=== PATIENT | male | born 1955 | race Caucasian/White ===

== ENCOUNTER 2017-10-05 12:11 | Inpatient (IN) | payer MEDICARE, MEDICAID ==
[~2017-10-05] VITALS: Ht 180.3 cm; Wt 58.6 kg
[2017-10-05 14:27] LABS: BASOPHILS % (AUTO) 0.2 % (0-1); EOSINOPHILS # (AUTO) 0.2 X10'3 (0-0.9); EOSINOPHILS % (AUTO) 1.7 % (0-6); HEMATOCRIT 40.9 % (42.0-52.0); HEMOGLOBIN 13.9 g/dl (14.0-17.9); LYMPHOCYTES # (AUTO) 1.1 X10'3 (1.1-4.8); LYMPHOCYTES % (AUTO) 8.2 % (21-51); MEAN CORPUSCULAR HEMOGLOBIN 29.7 PG (27.0-31.0); MEAN CORPUSCULAR HGB CONC 34.1 % (33.0-36.5); MEAN CORPUSCULAR VOLUME 87.3 FL (78-98); MEAN PLATELET VOLUME 7.7 FL (7.4-10.4); MONOCYTES # (AUTO) 1.1 X10'3 (0-0.9); MONOCYTES % (AUTO) 8.3 % (2-12); NEUTROPHILS # (AUTO) 11.1 X10'3 (1.8-7.7); NEUTROPHILS % (AUTO) 81.6 % (42-75); PLATELET COUNT 261 X10'3 (140-440); RED BLOOD COUNT 4.68 X10'6 (4.70-6.10); RED CELL DISTRIBUTION WIDTH 12.8 % (11.5-14.5); WHITE BLOOD COUNT 13.6 X10'3 (4.5-11.0)
[2017-10-05] MEDS ORDERED: ipratropium/albuterol 3ml nebule NEB ONE (14:35)
[2017-10-05] MEDS ORDERED: albuterol 2.5 MG/3 ML nebule NEB ONE (14:35)
[2017-10-05 14:37] LABS: INR 1.1 INR; PARTIAL THROMBOPLASTIN TIME 29 SECONDS (22-32); PROTHROMBIN TIME 10.9 SECONDS (9.0-12.0)
[2017-10-05 15:13] LABS: ALANINE AMINOTRANSFERASE 19 U/L (12-78); ALBUMIN 3.6 G/DL (3.4-5.0); ALKALINE PHOSPHATASE 100 IU/L (46-116); ANION GAP 6 (8-16); ASPARTATE AMINO TRANSFERASE 18 U/L (10-37); BILIRUBIN,TOTAL 0.5 MG/DL (0.1-1.0); BLOOD UREA NITROGEN 20 MG/DL (7-18); CALCIUM 8.8 MG/DL (8.5-10.1); CHLORIDE 99 MMOL/L (99-107); CREATININE 1.05 MG/DL (0.60-1.10); GLUCOSE 97 MG/DL (70-104); MAGNESIUM 1.8 MG/DL (1.5-2.4); POTASSIUM 3.9 MMOL/L (3.5-5.1); SODIUM 139 MMOL/L (135-145); TOTAL CARBON DIOXIDE 33.7 MMOL/L (24-32); TOTAL PROTEIN 7.3 G/DL (6.4-8.2); eGFR 72 ML/MIN
[2017-10-05 15:24] LABS: CLARITY,URINE CLEAR (Clear); COLOR,URINE YELLOW (Yellow); GLUCOSE, URINE NEGATIVE (Neg); KETONES,URINE NEGATIVE (Neg); LEUKOCYTE ESTERASE ,URINE NEGATIVE (Neg); NITRITES, URINE NEGATIVE (Neg); OCCULT BLOOD,URINE NEGATIVE (Neg); PROTEIN,URINE NEGATIVE (Neg)
[2017-10-05 15:31] LABS: UA COLLECTION TYPE CLN CATCH MIDSTREAM
[2017-10-05] MEDS ORDERED: normal saline 1000ML IV soln IVB ONE (16:00)
[2017-10-05] MEDS ORDERED: methylPREDNISolone sod succ 125mg/2ml vial IV ONE (16:00)
[2017-10-05] MEDS ORDERED: levoFLOXACIN-Levaquin 500mg/D5 100 ML IV ONE (16:00)
[2017-10-05] MEDS ORDERED: acetaminophen 325mg tablet PO PRN (16:35)
[2017-10-05] MEDS ORDERED: mag hydrox/Alum hydrox/simeth 30ml oral suspension PO PRN (16:35)
[2017-10-05] MEDS ORDERED: ondansetron/PF 4mg/2ml inj IV PRN (16:35)
[2017-10-05] MEDS ORDERED: magnesium hydroxide 30ml (MOM) UD suspension PO PRN (16:35)
[2017-10-05] MEDS: dextrose 5%-1/2 normal saline 1,000 ML IV SCH (16:54)
[2017-10-05 19:00] VITALS: BP 112/67
[2017-10-05] MEDS: HYDROcodone/acetaminophen 5mg/325mg tablet PO PRN (20:59)
[2017-10-05] MEDS: methylPREDNISolone sod succ 125mg/2ml vial IV SCH (20:59)
[2017-10-05 23:00] VITALS: BP 115/68
[2017-10-06] MEDS: dextrose 5%-1/2 normal saline 1,000 ML IV SCH ×2 (02:35→05:02)
[2017-10-06 02:38] LABS: BASOPHILS # (AUTO) 0.1 X10'3 (0-0.2); BASOPHILS % (AUTO) 0.5 % (0-1); EOSINOPHILS % (AUTO) 0.1 % (0-6); HEMATOCRIT 39.2 % (42.0-52.0); HEMOGLOBIN 13.1 g/dl (14.0-17.9); LYMPHOCYTES # (AUTO) 0.5 X10'3 (1.1-4.8); LYMPHOCYTES % (AUTO) 3.5 % (21-51); MEAN CORPUSCULAR HEMOGLOBIN 29.2 PG (27.0-31.0); MEAN CORPUSCULAR HGB CONC 33.3 % (33.0-36.5); MEAN CORPUSCULAR VOLUME 87.5 FL (78-98); MEAN PLATELET VOLUME 8.5 FL (7.4-10.4); MONOCYTES # (AUTO) 0.1 X10'3 (0-0.9); MONOCYTES % (AUTO) 0.6 % (2-12); NEUTROPHILS # (AUTO) 13.5 X10'3 (1.8-7.7); NEUTROPHILS % (AUTO) 95.3 % (42-75); PLATELET COUNT 246 X10'3 (140-440); RED BLOOD COUNT 4.47 X10'6 (4.70-6.10); WHITE BLOOD COUNT 14.2 X10'3 (4.5-11.0)
[2017-10-06] MEDS: methylPREDNISolone sod succ 125mg/2ml vial IV SCH ×4 (02:46→19:33)
[2017-10-06] MEDS ORDERED: aspirin 325mg tablet PO ONE (02:50)
[2017-10-06 02:59] LABS: ANION GAP 3 (8-16); BLOOD UREA NITROGEN 23 MG/DL (7-18); BUN/CREATININE RATIO 26.1 (5.4-32.0); CHLORIDE 101 MMOL/L (99-107); CREATININE 0.88 MG/DL (0.60-1.10); GLUCOSE 159 MG/DL (70-104); POTASSIUM 4.2 MMOL/L (3.5-5.1); SODIUM 137 MMOL/L (135-145); TOTAL CARBON DIOXIDE 33.1 MMOL/L (24-32)
[2017-10-06 03:00] VITALS: BP 104/67
[2017-10-06 03:00] LABS: ALANINE AMINOTRANSFERASE 19 U/L (12-78); ALBUMIN 3.1 G/DL (3.4-5.0); ALBUMIN/GLOBULIN RATIO 0.8 (1.1-1.5); ALKALINE PHOSPHATASE 88 IU/L (46-116); ASPARTATE AMINO TRANSFERASE 19 U/L (10-37); BILIRUBIN,TOTAL 0.3 MG/DL (0.1-1.0); CALCIUM 8.8 MG/DL (8.5-10.1); TOTAL PROTEIN 6.9 G/DL (6.4-8.2); eGFR 88 ML/MIN
[2017-10-06 06:00] VITALS: BP 102/61
[2017-10-06] MEDS ORDERED: NO HOME MEDS (06:43)
[2017-10-06] MEDS: enoxaparin 40mg/0.4ml syringe SQ SCH (07:17)
[2017-10-06] MEDS: levoFLOXACIN-Levaquin 750MG/D5 150 ML IV SCH (07:20)
[2017-10-06] MEDS: HYDROcodone/acetaminophen 5mg/325mg tablet PO PRN ×3 (07:24→22:45)
[2017-10-06] MEDS: ipratropium/albuterol 3ml nebule IH PRN (09:21)
[2017-10-06] MEDS: nicotine 14mg patch - 24hr TD SCH (10:21)
[2017-10-06 11:00] VITALS: BP 102/63
[2017-10-06 15:00] VITALS: BP 107/63
[2017-10-06] MEDS: lactobacillus rhamnosus 10,000 MMU CELLS/CAPSULE PO SCH (17:26)
[2017-10-06 19:00] VITALS: BP 103/67
[2017-10-06 23:00] VITALS: BP 110/69
[2017-10-07] MEDS: methylPREDNISolone sod succ 125mg/2ml vial IV SCH ×4 (02:35→19:54)
[2017-10-07 03:00] VITALS: BP 107/68
[2017-10-07] MEDS: HYDROcodone/acetaminophen 5mg/325mg tablet PO PRN (05:56)
[2017-10-07 06:00] VITALS: BP 106/65
[2017-10-07] MEDS: lactobacillus rhamnosus 10,000 MMU CELLS/CAPSULE PO SCH ×2 (07:17→17:43)
[2017-10-07] MEDS: enoxaparin 40mg/0.4ml syringe SQ SCH (07:18)
[2017-10-07] MEDS: levoFLOXACIN-Levaquin 750MG/D5 150 ML IV SCH (07:22)
[2017-10-07] MEDS: nicotine 14mg patch - 24hr TD SCH (07:25)
[2017-10-07 08:50] LABS: BASOPHILS % (AUTO) 0 % (0-1); EOSINOPHILS % (AUTO) 0 % (0-6); HEMATOCRIT 36.5 % (42.0-52.0); HEMOGLOBIN 12.4 g/dl (14.0-17.9); LYMPHOCYTES # (AUTO) 0.5 X10'3 (1.1-4.8); LYMPHOCYTES % (AUTO) 2.3 % (21-51); MEAN CORPUSCULAR HEMOGLOBIN 29.7 PG (27.0-31.0); MEAN CORPUSCULAR VOLUME 87.2 FL (78-98); MONOCYTES # (AUTO) 0.2 X10'3 (0-0.9); MONOCYTES % (AUTO) 0.9 % (2-12); NEUTROPHILS # (AUTO) 20.3 X10'3 (1.8-7.7); NEUTROPHILS % (AUTO) 96.8 % (42-75); PLATELET COUNT 235 X10'3 (140-440); RED BLOOD COUNT 4.18 X10'6 (4.70-6.10)
[2017-10-07] MEDS: azithromycin/NS 500mg/250ml 250 ML IV SCH (09:19)
[2017-10-07 11:00] VITALS: BP 102/65
[2017-10-07 15:00] VITALS: BP 101/58
[2017-10-07 19:00] VITALS: BP 104/66
[2017-10-07 23:00] VITALS: BP 106/70
[2017-10-08] MEDS: methylPREDNISolone sod succ 125mg/2ml vial IV SCH ×4 (02:42→20:14)
[2017-10-08 03:00] VITALS: BP 104/62
[2017-10-08 06:00] VITALS: BP 101/55
[2017-10-08] MEDS: lactobacillus rhamnosus 10,000 MMU CELLS/CAPSULE PO SCH ×2 (07:14→17:44)
[2017-10-08] MEDS: enoxaparin 40mg/0.4ml syringe SQ SCH (07:15)
[2017-10-08] MEDS: nicotine 14mg patch - 24hr TD SCH (07:15)
[2017-10-08] MEDS: azithromycin/NS 500mg/250ml 250 ML IV SCH (07:16)
[2017-10-08] MEDS: HYDROcodone/acetaminophen 5mg/325mg tablet PO PRN (07:28)
[2017-10-08 11:56] VITALS: BP 114/67
[2017-10-08] MEDS: LORazepam 0.5 MG tablet PO PRN (13:43)
[2017-10-08] MEDS: ipratropium/albuterol 3ml nebule IH PRN ×2 (14:35→19:50)
[2017-10-08 15:00] VITALS: BP 115/56
[2017-10-08 20:00] VITALS: BP 117/59
[2017-10-09] VITALS (7 sets, daily range): BP systolic 105–119; BP diastolic 64–83
[2017-10-09] MEDS: methylPREDNISolone sod succ 125mg/2ml vial IV SCH ×3 (02:18→15:06)
[2017-10-09] MEDS: HYDROcodone/acetaminophen 5mg/325mg tablet PO PRN ×2 (02:52→07:35)
[2017-10-09] MEDS: enoxaparin 40mg/0.4ml syringe SQ SCH (07:19)
[2017-10-09] MEDS: azithromycin 250mg tablet PO SCH (07:19)
[2017-10-09] MEDS: lactobacillus rhamnosus 10,000 MMU CELLS/CAPSULE PO SCH ×2 (07:19→17:30)
[2017-10-09] MEDS: nicotine 14mg patch - 24hr TD SCH (07:20)
[2017-10-09] MEDS: LORazepam 0.5 MG tablet PO PRN (10:03)
[2017-10-10 02:00] VITALS: BP 100/58
[2017-10-10] MEDS: HYDROcodone/acetaminophen 5mg/325mg tablet PO PRN ×5 (02:56→21:23)
[2017-10-10 06:00] VITALS: BP 112/58
[2017-10-10] MEDS: azithromycin 250mg tablet PO SCH (08:16)
[2017-10-10] MEDS: lactobacillus rhamnosus 10,000 MMU CELLS/CAPSULE PO SCH ×2 (08:16→17:01)
[2017-10-10] MEDS: prednisone 10mg tablet PO SCH (08:17)
[2017-10-10] MEDS: nicotine 14mg patch - 24hr TD SCH (08:17)
[2017-10-10] MEDS: enoxaparin 40mg/0.4ml syringe SQ SCH (08:18)
[2017-10-10 11:00] VITALS: BP 112/59
[2017-10-10] MEDS ORDERED: pantoprazole 40mg Tablet.DR PO ONE (11:45)
[2017-10-10] MEDS: LORazepam 0.5 MG tablet PO PRN ×2 (12:24→18:37)
[2017-10-10 13:05] LABS: BASOPHILS % (AUTO) 0.1 % (0-1); EOSINOPHILS % (AUTO) 0 % (0-6); HEMATOCRIT 37.7 % (42.0-52.0); HEMOGLOBIN 12.8 g/dl (14.0-17.9); LYMPHOCYTES # (AUTO) 0.9 X10'3 (1.1-4.8); LYMPHOCYTES % (AUTO) 5.8 % (21-51); MEAN CORPUSCULAR HEMOGLOBIN 29.8 PG (27.0-31.0); MEAN CORPUSCULAR HGB CONC 33.9 % (33.0-36.5); MONOCYTES # (AUTO) 0.9 X10'3 (0-0.9); MONOCYTES % (AUTO) 5.2 % (2-12); NEUTROPHILS # (AUTO) 14.7 X10'3 (1.8-7.7); NEUTROPHILS % (AUTO) 88.9 % (42-75); PLATELET COUNT 262 X10'3 (140-440); RED BLOOD COUNT 4.29 X10'6 (4.70-6.10); RED CELL DISTRIBUTION WIDTH 12.4 % (11.5-14.5); WHITE BLOOD COUNT 16.5 X10'3 (4.5-11.0)
[2017-10-10 13:16] LABS: ALBUMIN 2.5 G/DL (3.4-5.0); BLOOD UREA NITROGEN 20 MG/DL (7-18); BUN/CREATININE RATIO 32.3 (5.4-32.0); CALCIUM 8.3 MG/DL (8.5-10.1); CHLORIDE 101 MMOL/L (99-107); CREATININE 0.62 MG/DL (0.60-1.10); GLUCOSE 102 MG/DL (70-104); POTASSIUM 3.8 MMOL/L (3.5-5.1); SODIUM 143 MMOL/L (135-145); eGFR > 90 ML/MIN
[2017-10-10 13:17] LABS: ANION GAP -3 (8-16)
[2017-10-10 13:19] LABS: TOTAL CARBON DIOXIDE 45.1 MMOL/L (24-32)
[2017-10-10 15:00] VITALS: BP 115/70
[2017-10-10 19:00] VITALS: BP 112/78
[2017-10-10 23:00] VITALS: BP 131/79
[2017-10-11 03:00] VITALS: BP 143/71
[2017-10-11] MEDS: HYDROcodone/acetaminophen 5mg/325mg tablet PO PRN (04:02)
[2017-10-11 05:57] LABS: BASOPHILS # (AUTO) 0.1 X10'3 (0-0.2); BASOPHILS % (AUTO) 1.1 % (0-1); EOSINOPHILS # (AUTO) 0.1 X10'3 (0-0.9); HEMOGLOBIN 13.4 g/dl (14.0-17.9); LYMPHOCYTES % (AUTO) 25.3 % (21-51); MEAN CORPUSCULAR HEMOGLOBIN 29.8 PG (27.0-31.0); MEAN CORPUSCULAR HGB CONC 33.6 % (33.0-36.5); MEAN CORPUSCULAR VOLUME 88.9 FL (78-98); MEAN PLATELET VOLUME 7.9 FL (7.4-10.4); MONOCYTES % (AUTO) 8.7 % (2-12); NEUTROPHILS # (AUTO) 7.6 X10'3 (1.8-7.7); NEUTROPHILS % (AUTO) 63.9 % (42-75); PLATELET COUNT 310 X10'3 (140-440); RED CELL DISTRIBUTION WIDTH 12.7 % (11.5-14.5); WHITE BLOOD COUNT 11.9 X10'3 (4.5-11.0)
[2017-10-11 06:00] VITALS: BP 121/78
[2017-10-11 06:31] LABS: ANION GAP 5 (8-16); BLOOD UREA NITROGEN 19 MG/DL (7-18); CALCIUM 8.2 MG/DL (8.5-10.1); CHLORIDE 98 MMOL/L (99-107); CREATININE 0.76 MG/DL (0.60-1.10); GLUCOSE 93 MG/DL (70-104); POTASSIUM 3.4 MMOL/L (3.5-5.1); SODIUM 143 MMOL/L (135-145); eGFR > 90 ML/MIN
[2017-10-11 06:32] LABS: ALANINE AMINOTRANSFERASE 24 U/L (12-78); ALBUMIN 2.6 G/DL (3.4-5.0); ALBUMIN/GLOBULIN RATIO 0.8 (1.1-1.5); ALKALINE PHOSPHATASE 74 IU/L (46-116); ASPARTATE AMINO TRANSFERASE 19 U/L (10-37); BILIRUBIN,TOTAL 0.2 MG/DL (0.1-1.0); MAGNESIUM 1.9 MG/DL (1.5-2.4); TOTAL PROTEIN 5.9 G/DL (6.4-8.2)
[2017-10-11 06:39] LABS: TOTAL CARBON DIOXIDE 40.5 MMOL/L (24-32)
[2017-10-11] MEDS ORDERED: pantoprazole 40mg Tablet.DR PO SCH (07:30)
[2017-10-11] MEDS: azithromycin 250mg tablet PO SCH (08:20)
[2017-10-11] MEDS: lactobacillus rhamnosus 10,000 MMU CELLS/CAPSULE PO SCH (08:20)
[2017-10-11] MEDS: enoxaparin 40mg/0.4ml syringe SQ SCH (08:21)
[2017-10-11] MEDS: nicotine 14mg patch - 24hr TD SCH (08:21)
[2017-10-11] MEDS ORDERED: potassium chloride 10mEq CAPSULE.SA PO ONE (09:15)
[2017-10-11] MEDS ORDERED: potassium Cl 20 mEq SR tablet PO ONE (09:20)
[2017-10-11] MEDS: prednisone 10mg tablet PO SCH (09:25)
[2017-10-11] MEDS: ipratropium/albuterol 3ml nebule IH PRN (09:43)
[2017-10-11] MEDS ORDERED: PANT40TA4 PO (10:32)
[2017-10-11] MEDS ORDERED: PRED10TA PO (10:32)
[2017-10-11] MEDS ORDERED: NICO-631 TD (10:32)
[2017-10-11] MEDS ORDERED: POTA20TA10 PO (10:32)
[2017-10-11 11:00] VITALS: BP 114/71
[2017-10-12] MEDS ORDERED: potassium Cl 20 mEq SR tablet PO SCH (08:00)
== END 2017-10-11 12:30 | disposition home or self-care (01) | DRG 189 ==
LOC: ER 12:12 → ED HOLD 16:35 → EDBEDREQ 18:17 → PCU 3S 19:09
PROVIDERS: ADMIT Internal Medicine; ATTEND Internal Medicine
DX: J96.01 Acute respiratory failure with hypoxia (principal); J44.0 Chronic obstructive pulmonary disease with (acute) lower respiratory infection; Z99.81 Dependence on supplemental oxygen; J44.1 Chronic obstructive pulmonary disease with (acute) exacerbation; K29.00 Acute gastritis without bleeding; F41.9 Anxiety disorder, unspecified; D72.829 Elevated white blood cell count, unspecified; R91.1 Solitary pulmonary nodule; J20.9 Acute bronchitis, unspecified; T38.0X5A Adverse effect of glucocorticoids and synthetic analogues, initial encounter; F12.90 Cannabis use, unspecified, uncomplicated; F17.210 Nicotine dependence, cigarettes, uncomplicated; I25.2 Old myocardial infarction; Z88.5 Allergy status to narcotic agent; Z88.8 Allergy status to other drugs, medicaments and biological substances; Z82.49 Family history of ischemic heart disease and other diseases of the circulatory system; Y92.89 Other specified places as the place of occurrence of the external cause
CPT/HCPCS: 36415; 71045; 71250; 80048; 80053; 81003; 83605; 83735; 83880; 84145; 84443; 84484; 85025; 85610; 85730; 86713; 87040; 87070; 87502; 87503; 93005; 94640; 94760; 96374; 99291; J0456; J1650; J1956; J2405; J2930; J7030; J7512

== ENCOUNTER 2019-01-05 10:27 | Emergency (ER) | payer MEDICARE, MEDICAID ==
[~2019-01-05] VITALS: Ht 180.3 cm; Wt 61.4 kg
[~2019-01-05 10:27] MED LIST: NICO-631 TD; NO HOME MEDS; PANT40TA4 PO; POTA20TA10 PO; PRED10TA PO
[2019-01-05 11:25] LABS: BASOPHILS % (AUTO) 0.6 % (0-1); EOSINOPHILS # (AUTO) 0.1 X10'3 (0-0.9); EOSINOPHILS % (AUTO) 2.1 % (0-6); HEMOGLOBIN 15.8 g/dl (14.0-17.9); LYMPHOCYTES # (AUTO) 1.8 X10'3 (1.1-4.8); LYMPHOCYTES % (AUTO) 29.7 % (21-51); MEAN CORPUSCULAR HEMOGLOBIN 29.7 PG (27.0-31.0); MEAN CORPUSCULAR HGB CONC 33.6 g/dL (33.0-36.5); MEAN CORPUSCULAR VOLUME 88.3 FL (78-98); MEAN PLATELET VOLUME 7.9 FL (7.4-10.4); MONOCYTES # (AUTO) 0.7 X10'3 (0-0.9); MONOCYTES % (AUTO) 10.8 % (2-12); NEUTROPHILS # (AUTO) 3.5 X10'3 (1.8-7.7); NEUTROPHILS % (AUTO) 56.8 % (42-75); PLATELET COUNT 264 X10'3 (140-440); RED BLOOD COUNT 5.33 X10'6 (4.70-6.10); WHITE BLOOD COUNT 6.1 X10'3 (4.5-11.0)
[2019-01-05] MEDS ORDERED: PRED20TA PO (11:26)
[2019-01-05] MEDS ORDERED: ALBU18HF2 INH (11:26)
[2019-01-05] MEDS ORDERED: AZIT250T2 PO (11:26)
[2019-01-05] MEDS: ipratropium/albuterol 3ml nebule NEB ONE (11:29)
[2019-01-05] MEDS: albuterol 2.5 MG/3 ML nebule NEB ONE (11:29)
[2019-01-05] MEDS: normal saline 1000ML IV soln IVB ONE (11:30)
[2019-01-05] MEDS: methylPREDNISolone sod succ 125mg/2ml vial IV ONE (11:31)
[2019-01-05] MEDS: azithromycin 250mg tablet PO ONE (11:37)
[2019-01-05 11:42] LABS: ALANINE AMINOTRANSFERASE 21 U/L (12-78); ALBUMIN 3.7 G/DL (3.4-5.0); ALBUMIN/GLOBULIN RATIO 0.9 (1.1-1.5); ALKALINE PHOSPHATASE 107 IU/L (46-116); ANION GAP -1 (8-16); ASPARTATE AMINO TRANSFERASE 22 U/L (10-37); BILIRUBIN,TOTAL 0.5 MG/DL (0.1-1.0); BLOOD UREA NITROGEN 15 MG/DL (7-18); BUN/CREATININE RATIO 20.5 (5.4-32.0); CALCIUM 9.7 MG/DL (8.5-10.1); CHLORIDE 101 MMOL/L (99-107); CREATININE 0.73 MG/DL (0.60-1.10); GLUCOSE 83 MG/DL (70-104); POTASSIUM 4.5 MMOL/L (3.5-5.1); SODIUM 136 MMOL/L (135-145); TOTAL CARBON DIOXIDE 36.3 MMOL/L (24-32); TOTAL PROTEIN 7.9 G/DL (6.4-8.2); eGFR > 90 ML/MIN
[2019-01-05 11:55] VITALS: BP 106/50
--- NOTE | 2019-01-05 11:56 | NUR ---
RT TX FINISHED. PT STATES, IM BREATHING BETTER.
== END 2019-01-05 12:15 | disposition home or self-care (01) ==
LOC: ER 10:28
DX: J44.1 Chronic obstructive pulmonary disease with (acute) exacerbation (principal); R06.03 Acute respiratory distress; F17.200 Nicotine dependence, unspecified, uncomplicated; F12.90 Cannabis use, unspecified, uncomplicated; Z88.5 Allergy status to narcotic agent; Z88.8 Allergy status to other drugs, medicaments and biological substances; Z79.2 Long term (current) use of antibiotics; Z79.899 Other long term (current) drug therapy
CPT/HCPCS: 36415; 71045; 80053; 83605; 85025; 87040; 93005; 94640; 94760; 96374; 99284; J2930; J7030

== ENCOUNTER 2019-10-06 19:34 | Emergency (ER) | payer MEDICARE, MEDICAID ==
[~2019-10-06] VITALS: Ht 180.3 cm; Wt 63.0 kg
[~2019-10-06 19:34] MED LIST changes: +ALBU18HF2 INH
[2019-10-06] MEDS ORDERED: methylPREDNISolone sod succ 125mg/2ml vial IV ONE (19:45)
[2019-10-06] MEDS ORDERED: ipratropium/albuterol 3ml nebule NEB ONE (19:45)
[2019-10-06] MEDS ORDERED: normal saline 1000ML IV soln IVB ONE (19:45)
--- NOTE | 2019-10-06 19:53 | NUR ---
1949 ETOMIDATE 20MG 1949 HUGO 80MG 1952 INTUBATED 24CM TO MOUTH ET SIZE 8 BI-LATERAL POSITIVE AUSCILTATION
[2019-10-06] MEDS ORDERED: etomidate 2mg/ml inj. ONE (20:00)
[2019-10-06] MEDS ORDERED: rocuronium 10mg/ml inj IV ONE (20:00)
--- NOTE | 2019-10-06 20:00 | NUR ---
CXR AT BEDSIDE.
[2019-10-06 20:15] LABS: BASOPHILS % (AUTO) 0.6 % (0-1); EOSINOPHILS # (AUTO) 0.1 X10'3 (0-0.9); EOSINOPHILS % (AUTO) 1.2 % (0-6); HEMATOCRIT 41.9 % (42.0-52.0); HEMOGLOBIN 13.9 g/dl (14.0-17.9); LYMPHOCYTES # (AUTO) 1.7 X10'3 (1.1-4.8); LYMPHOCYTES % (AUTO) 27.6 % (21-51); MEAN CORPUSCULAR HEMOGLOBIN 29.2 PG (27.0-31.0); MEAN CORPUSCULAR HGB CONC 33.1 g/dL (33.0-36.5); MEAN CORPUSCULAR VOLUME 88.2 FL (78-98); MEAN PLATELET VOLUME 7.7 FL (7.4-10.4); MONOCYTES # (AUTO) 0.6 X10'3 (0-0.9); MONOCYTES % (AUTO) 8.8 % (2-12); NEUTROPHILS # (AUTO) 3.9 X10'3 (1.8-7.7); NEUTROPHILS % (AUTO) 61.8 % (42-75); PLATELET COUNT 256 X10'3 (140-440); RED BLOOD COUNT 4.75 X10'6 (4.70-6.10); RED CELL DISTRIBUTION WIDTH 13.1 % (11.5-14.5); WHITE BLOOD COUNT 6.3 X10'3 (4.5-11.0)
[2019-10-06] MEDS: propofol 1000mg/100ml bottle 100 ML IV PRN ×4 (20:25→23:33)
[2019-10-06 20:26] LABS: PARTIAL THROMBOPLASTIN TIME 28 SECONDS (22-32)
--- NOTE | 2019-10-06 20:27 | NUR ---
FAMILY AT BEDSIDE
[2019-10-06 20:28] LABS: ALANINE AMINOTRANSFERASE 16 U/L (12-78); ALBUMIN 3.7 G/DL (3.4-5.0); ALKALINE PHOSPHATASE 94 IU/L (46-116); ANION GAP 0 (8-16); ASPARTATE AMINO TRANSFERASE 18 U/L (10-37); BILIRUBIN,TOTAL 0.2 MG/DL (0.1-1.0); BLOOD UREA NITROGEN 22 MG/DL (7-18); BUN/CREATININE RATIO 23.7 (5.4-32.0); CALCIUM 8.7 MG/DL (8.5-10.1); CHLORIDE 106 MMOL/L (99-107); CREATININE 0.93 MG/DL (0.60-1.10); GLUCOSE 97 MG/DL (70-104); SODIUM 142 MMOL/L (135-145); TOTAL CARBON DIOXIDE 35.7 MMOL/L (24-32); TOTAL PROTEIN 7.4 G/DL (6.4-8.2); eGFR 82 ML/MIN
[2019-10-06 20:30] LABS: POTASSIUM 4.2 MMOL/L (3.5-5.1)
[2019-10-06 20:31] LABS: ABG BASE EXCESS 1.7 mmol/L (-2.0-3.0); ABG HCO3 28.8 mmol/L (22.0-26.0); ABG OXYGEN SATURATION 99.2 % (95-98); ABG PCO2 (T) 56.1 mmHg (35.0-45.0); ABG PH (T) 7.329 (7.350-7.450); ABG PO2 (T) 314.9 mmHg (83-108); ALLEN'S TEST POSITIVE; FCOHb 1.5 % (0.5-1.5); FMetHb 0.2 % (0.3-1.12); FO2Hb 97.5 % (94-100); PEEP 5 cm H2O; RESPIRATORY RATE 16 b/min; TIDAL VOLUME 450 mL; TOTAL HEMOGLOBIN 13.4 G/dl (14.0-17.9)
[2019-10-06] MEDS ORDERED: MIDAZolam 5mg/ml 2ml vial IV ONE (21:00)
--- NOTE | 2019-10-06 21:11 | NUR ---
2049: PT MAXED OUT AT 50MCG/KG/MIN OF IV PROPOFOL (DR. ROWELL AWARE, OK TO INITIATE A VERSED MAINTENANCE INFUSION; PENDING PHARMACY DELIVERY) 2101: BOLUS OF 30MG IV PROPOFOL GIVEN 2108: BOLUS OF 5MG VERSED GIVEN
[2019-10-06] MEDS: midazolam 100mg in NS 100ml 100 ML IV PRN ×2 (21:22→23:31)
--- NOTE | 2019-10-06 21:23 | NUR ---
1MG/HR VERSED MAINTENANCE INFUSION STARTED. PT REMAINS RASS +1 RESTLESS.
--- NOTE | 2019-10-06 21:27 | NUR ---
DR. ROWELL CAME TO BEDSIDE AND UPDATED DAUGHTER ON PLAN OF CARE. PT WILL BE TRANSFERRED TO [facility]. PENDING TRANSFER ARRANGEMENTS. PT REMAINS ON RESTLESS ON PROPOFOL AND VERSED MAINTENANCE INFUSIONS. PER DR. ROWELL, "OK" TO TITRATE VERSED DRIP TO 3MG/HR (TITRATE AGAIN TO 5MG/HR) IF PT REMAINS RESTLESS. PT'S BP STABLE AT 122/61, 79 NSR, 98% ON 40 FIO2, AND 21 RESP (18 SET VENT RATE), 96.8 VIEYRA TEMP. WILL CONTINUE TO MONITOR AND ASSESS.
--- NOTE | 2019-10-06 21:46 | NUR ---
Pt's daughters at bedside. Pt seems a little restless as they talk to him, but then calms down. BP 106/74, O2 96%, HR 81, R18 on ventilator.
--- NOTE | 2019-10-06 22:09 | NUR ---
VERSED MAINTENANCE INFUSION TITRATED TO 10MG/HR DUE RASS +1 RESTLESS MOVEMENT.
[2019-10-06] MEDS ORDERED: normal saline 1000ml 1,000 ML IV SCH (22:15)
--- NOTE | 2019-10-06 22:27 | NUR ---
VERSED INFUSION TITRATED TO 15MG/HR.
[2019-10-06] MEDS ORDERED: TETanus/Pertussis (Acell)/Diphther VAC/PF (Tdap-Adult) 0.5ml syringe IMVAC ONE (22:35)
--- NOTE | 2019-10-06 23:25 | NUR ---
[facility] AT BEDSIDE ASSESSING PT, PREPPING FOR AIR TRANSPORT. DAUGHTERS AT BEDSIDE WITH PT.
--- NOTE | 2019-10-06 23:39 | NUR ---
[facility] AT BEDSIDE PREPPING THEIR EQUIPMENT FOR TRANSFER. PT REMAINS CRITICALLY STABLE AT THIS TIME.
[2019-10-07 00:05] LABS: URINE AMPHETAMINE SCREEN POSITIVE (Neg); URINE BARBITUATE SCREEN NEGATIVE (Neg); URINE BENZODIAZEPINES SCREEN POSITIVE (Neg); URINE CANNABINOID SCREEN POSITIVE (Neg); URINE COCAINE SCREEN NEGATIVE (Neg); URINE METHADONE SCREEN NEGATIVE (Neg); URINE OPIATE SCREEN NEGATIVE (Neg); URINE PHENCYCLIDINE SCREEN NEGATIVE (Neg)
[2019-10-07 00:18] VITALS: BP 107/72
[2019-10-07] MEDS ORDERED: propofol 1000mg/100ml bottle 100 ML IV PRN (01:50)
[2019-10-07] MEDS ORDERED: midazolam 100mg in NS 100ml 100 ML IV PRN (01:50)
--- NOTE | 2019-10-07 02:24 | NUR ---
PT RETURNED TO ED FROM [facility] TO MECHANICAL FAILURE OF HELIC[facility]TER, PT SEDATION MEDICATIONS RUNNING LOW AND WILL NEED MORE IN FLIGHT MEDICATIONS PULLED AND GIVEN TO [facility]W TO ADMINISTER DURING TRANSPORT.
== END 2019-10-07 00:20 | disposition short-term general hospital (02) ==
LOC: ER 19:35
DX: T20.20XA Burn of second degree of head, face, and neck, unspecified site, initial encounter (principal); J96.01 Acute respiratory failure with hypoxia; J44.9 Chronic obstructive pulmonary disease, unspecified; F17.210 Nicotine dependence, cigarettes, uncomplicated; F12.90 Cannabis use, unspecified, uncomplicated; Z88.5 Allergy status to narcotic agent; Z88.8 Allergy status to other drugs, medicaments and biological substances; Z79.899 Other long term (current) drug therapy; X08.8XXA Exposure to other specified smoke, fire and flames, initial encounter; Y93.89 Activity, other specified; Y92.89 Other specified places as the place of occurrence of the external cause; Y99.9 Unspecified external cause status
CPT/HCPCS: 31500; 36415; 36600; 71045; 80053; 80305; 82803; 85018; 85025; 85610; 85730; 93005; 99291; 99292; J2250; J2704; J2930; J7030; 94002; 94760

== ENCOUNTER 2025-01-26 11:10 | Outpatient (CLI) | payer MEDICARE, MEDICAID ==
[~2025-01-26 11:10] MED LIST changes: -PANT40TA4 PO; +PANT40TA54 PO; +POTA-197 PO; -POTA20TA10 PO
[2025-01-26 11:53] VITALS: PULSE 71; RESP 18; O2SAT 98
--- NOTE | 2025-01-26 13:24 | RADIOLOGY REPORT ---
Procedure: CT CT CHEST Reason for study/Clinical History: DISORDERS OF LUNG;CHRONIC OBSTRUCTIVE PULMONARY DI Comparison Study: None TECHNIQUE: Multidetector CT of the chest was performed from the lung apices to the upper abdomen with out the use of intravenous contract. Axial, coronal and sagittal multiplanar reformats were performed . Radiation Dose Information: CT Dose: CTDI volume is 7.1 mGy. Dose-length product is 314.1 mGy*cm The dose indicators for CT are the volume Computed Tomography (CT) Dose Index (CTDIvol) and the Dose Length Product (DLP), and are measured in units of mGy and mGy-cm, respectively. These indicators are not patient dose, but values generated from the CT scanner acquisition factors. The report includes radiation exposure data for exposures received during this examination. FINDINGS: Lower neck: Unremarkable. Lungs: 0.9 cm nodule in the left lower lobe. Severe centrilobular emphysema. Patchy opacity in the right lower lobe measures 2.0 cm. Bibasilar subsegmental atelectasis or scarring. Heart/Vascular Structures: Normal heart size. No pericardial effusion. Lymph Nodes: No adenopathy Pleura: No pleural effusion or significant pneumothorax. Musculoskeletal: No acute osseous abnormality. Degenerative changes of the spine. Soft tissues: Normal. Upper abdomen: Limited portions of the upper abdomen are unremarkable. IMPRESSION: Severe centrilobular emphysema. 0.9 cm nodule in the left lower lobe. Patchy opacity in the right lower lobe measures 2.0 cm. This may be infectious, inflammatory or neop lastic. Recommend repeat CT in 3 months after complete resolution. Fleischner Society pulmonary nodule recommendations (2017): Single solid nodule <6 mm Low-risk patients: no routine follow-up required High-risk patients: optional CT at 12 months (particularly with suspicious nodule morphology and/or upper lobe location) Solitary solid nodule 6-8 mm Low-risk patients: CT at 6-12 months, then consider CT at 18-24 months High-risk patients: CT at 6-12 months, then CT at 18-24 months Solitary solid nodule >8 mm (>250 mm3) Low-risk and high-risk patients: consider CT at 3 months, PET/CT, or tissue sampling Multiple solid nodules <6 mm Low-risk patients: no routine follow-up required High-risk patients: optional CT at 12 months Multiple solid nodules >6 mm Low-risk patients: CT at 3-6 months, then consider CT at 18-24 months High-risk patients: CT at 3-6 months, then CT at 18-24 months When multiple nodules are present, the most suspicious nodule should guide further individualized management. Solitary groundglass opacities < 6 mm require no follow-up Multiple groundglass opacities < 6 mm: CT 3-6 months. If stable consider CT at 2 , and 4 years Groundglass opacities >6 mm: follow-up in 6-12 months and then every 2 years for 5 years. Groundglass opacities greater than 6 mm with part solid component follow-up CT in 3-6 months to confirm persistence. If unchanged and solid component remains less than [address] for 5 years Multiple groundglass opacities greater than 6 mm: CT at 3-6 months. Subsequent management based on the most suspicious nodules. These recommendations do not necessarily apply to women, patients with immunosuppression or a prior history of cancer, patients with multiple nodules that are suspicious for metastasis or infection, or patients with mediastinal lymphadenopathy or pleural effusion in whom cancer is strongly suspected.
--- NOTE | 2025-01-29 13:44 | PROCEDURE NOTE - Respiratory ---
Procedure Note-Respiratory Providers to CC Copies To 1: BARBI MALDONADO Procedure Name: This is a spirometry study dated January 26, 2025. Spirometry measurements: There is very severe reduction in the vital capacity and the FEV1 measurements. The FEV1 ratio is also quite low. The flow rate measurements are extremely poor. Bronchodilator was not administered as part of the study. Conclusion: This study is severely abnormal. There is evidence of obstructive ventilatory defect in the very severe category. 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 Bronchodilator therapy should be continued for this patient. Complete abstinence from cigarette smoking is recommended. We have no previous studies for comparison. This patient would be expected to exhibit severe pulmonary limitation due to advanced COPD. HONG CHAN MD Jan 29, 2025 13:44
== END 2025-01-26 23:59 | disposition home or self-care (01) ==
LOC: RAD 11:10
DX: J43.2 Centrilobular emphysema (principal); J98.4 Other disorders of lung; R91.1 Solitary pulmonary nodule
CPT/HCPCS: 71250; 94010; 94760